=== PATIENT | female | born 1950 | race Caucasian/White ===

== ENCOUNTER 2017-02-28 06:54 | Inpatient (IN) | payer MEDICARE ==
[~2017-02-28] VITALS: Ht 152.4 cm; Wt 81.7 kg
--- NOTE | ~2017-02-28 | OR ---
PATIENT'S NAME: CYNTHIA RIDER [facility] AGE: 66 Y [address] ROOM: [address] [address] LOCATION: [facility] ADMIT DATE: 02/28/2017 OR/Procedure Report DISCHARGE DATE: FAMILY PHYSICIAN: Elder Nieto MD ATTENDING PHYSICIAN: Antoni Denton SURGEON: Antoni Denton MD SOFTWARE CONFIGURATION SPECIALIST: DATE OF PROCEDURE: 02/28/2017 PREOPERATIVE DIAGNOSIS: Cervical spinal stenosis with cord compression at C4- 5 and C5-6. POSTOPERATIVE DIAGNOSIS: Cervical spinal stenosis with cord compression at C4- 5 and C5-6. OPERATION PROPOSED AND PERFORMED: 1. Anterior cervical microdiskectomy at C4-5. 2. Anterior cervical microdiskectomy at C5-6. 3. Anterior cervical fusion at C4-5. 4. Anterior cervical fusion at C5-6. 5. Plating using the Inion absorbable plate. 6. Allograft. 7. Microscope. 8. Fluoroscopy with interpretation. DESCRIPTION OF PROCEDURE: Under general anesthesia, the patient's neck was slightly extended and the neck and upper chest were prepped and draped in the usual fashion. Next, a curvilinear incision was then carried out extending from the anterior border of the sternomastoid muscle to the midline. The platysma was incised along this line. We then went ahead and continued our dissection in the plane between the sternomastoid muscle and the strap muscle working medial to the carotid sheath. This brought us to the prevertebral fascia which we cauterized and incised, got us to the vertebral bodies and disk spaces. Next, 2 spinal needles were placed in adjacent disk spaces and the initial one showed that we were at the C5-6 and C6-7 disk spaces. Next, we then advanced proximally and we were able to then identify the C4-5 disk space, put a spinal needle in the disk space. We got the fluoroscopy again and it confirmed that this was the C4-5 disk space. We went ahead and marked the C4-5 and C5-6 disk spaces; and at the C4-5 disk space, there was very little disk space present. We were able to use 1-mm Kerrison to remove the anterior osteophytes that were blocking the disk space and those we were able to get into the disk space itself, which was quite narrow. We used curettes to curette out disk material. After we had done this for C4-5, we did the same thing for C5-6. We then went ahead and put in the distractor rods, screwed it into the C4, C5, C6 vertebral bodies. Starting at the C4-5 level, PATIENT'S NAME: CYNTHIA RIDER [facility] AGE: 66 Y [address] ROOM: [place] [address] LOCATION: [facility] ADMIT DATE: 02/28/2017 OR/Procedure Report DISCHARGE DATE: FAMILY PHYSICIAN: Elder Nieto MD ATTENDING PHYSICIAN: Antoni Denton we distracted the disk space, brought in the microscope. With the aid of the microscope, we were able to completely remove the rim of the disk material; however, there were very prominent osteophytes projecting, especially from the posterior-inferior part of the C4 vertebral body and compressing the dura and directly those compressing the spinal cord. Using the Kerrison rongeurs, we were able to remove these prominent osteophytes, both from the posterior- inferior as well as posterior-superior portions of the C4 and C5 vertebral bodies respectively. After this was done, we removed the posterior longitudinal ligament, we were able to identify the dura, unable to say confidently that the compression on the dura at this level had been completely gotten rid of. After that was done, we put a piece of Gelfoam soaked in thrombin in the now empty disk space, we put 2 patties in, released the distraction, and then paid our attention to the C5-C6 level. Procedure carried out at this level was the same. There were prominent osteophytes extending from the posterior-inferior as well as the posterior-superior portions of the C5 and C6 vertebral bodies respectively, but was not as severe as what we had at the C4-5 level. After taking out the disk and removing the osteophytes, the dura was completely decompressed. Next, we directed our attention to the C4-5 level while waiting for hemostasis to occur at the C5-6 level using Gelfoam soaked in thrombin, and with the distraction, we then used the allograft sizer to get the appropriate size bone and we used the 6 mm in height bone and tapped it into the empty disk space. After this was done, the distraction was released. We then distracted the C5-C6 level and carried out a similar process and this height of the bone was also 6 mm. After this had been done, the distraction rods were removed. We filled out these holes left behind with small pieces of bone wax. Next, we got the Inion Sizer to get the appropriate length plate that we needed. After we had done this, we then removed the soft tissue from the anterior-inferior, anterior-superior, and anterior part of the C4, C6, and C5 vertebral bodies respectively. After that was done, we also removed the prominent anterior osteophytes. Next, the inion plate was then put in sterile warm water which we then were able to make a slight lordosis of the plate left. After making the lordosis, we then put the plate directly anterior to the vertebral bodies going across the now empty disk spaces that have been now occupied with the graft. The plate holding pins were then put in place going through the holes in the hole and fixing it to the vertebral bodies, and after this was done, using the double-barrel guide, starting in the middle holes which were over the C5 vertebral bodies, we drilled and tapped and then put the screws in. We used the 14-mm screws. After this was done, we used a double-barrel to also carry out the same thing in the remaining 4 holes. We were able to remove the plate holding pins in order to drill the hole and tap and put the screws in where the pins were. In tapping and drilling what we did was to drill and tap one, we then left the tap in so as to help maintain things while we were drilling and tapping the other hole in the double-barrel system. After we had put all the screws in, the wound was thoroughly irrigated with bacitracin irrigation. There was not PATIENT'S NAME: CYNTHIA RIDER [facility] AGE: 66 Y [address] ROOM: [place] [address] LOCATION: [facility] ADMIT DATE: 02/28/2017 OR/Procedure Report DISCHARGE DATE: FAMILY PHYSICIAN: Elder Nieto MD ATTENDING PHYSICIAN: Antoni Denton any copious bleeding that we could see. We then went ahead and closed the wound in layers, first the platysma and then the skin. After this was done, we brought the x-ray in and with fluoroscopy, we did a lateral fluoroscopy and that showed that the plate, graft, and screws were in good position. The wound had been thoroughly irrigated with bacitracin irrigation prior to closing. The patient tolerated the procedure well and was taken to the recovery room. MD ABIODUN FINCH/rashard /[id number] d: 02/28/17 2310 t: 03/05/17 1206, OPERATIVE SUMMARY
[~2017-02-28 06:54] MED LIST: ACTOS30 MG PO; ALLEGRA-D 24 H1 EACH PO; AMARYL4 MG PO; ASPIRIN EC81 MG PO; BETAPACE (GENER80 MG PO; CARAFATE1 GM PO; CINNAMON500 MG PO; COLACE100 MG PO; COREG 3.1253.125 MG PO; COZAAR25 MG PO; CULTURELLE1 CAP PO; ESTROVEN MAX400 MCG PO; FEOSOL325 MG PO; FIBERCON1 TAB PO; GLUCOPHAGE500 MG PO; LASIX20 MG PO; NEURONTIN100 MG PO; NORCO 5-325 TA1 EACH PO; NORVASC5 MG PO; PRAVACHOL80 MG PO; PRILOSEC20 MG PO; PROAIR HFA8.5 GM INH; SPIRIVA RESPIMAT4 G1 INH; WELLBUTRIN SR150 MG PO
--- NOTE | 2017-02-28 13:10 | NUR ---
Introduced self to patient, her and twin sister. Explained my role. They live in [place], Didn't anticipate any needs at this time. Wrote my name on her marker board, will continue to follow.
--- NOTE | 2017-02-28 14:59 | NUR ---
1217 FENTANYL INITIATED 25 MEQ FOR PAIN. PATIENT IS MOANING AND GRIMACING. 1220 FENTANYL REPEATED. RESPIRTATIONS EVEN AND UNLABORED. PATIENT IS EASY TO AWAKEN AND ACTS STARTLED WHEN TALKED TO. SHE IS A LITTLE DIFFICULT TO ASSESS BECAUSE SHE KEEPS HER EYES CLOSED EVEN WHEN SHE TALKS TO ME. 1228 REPEATED FENTANYL 50 MCG FOR PAIN. 1235 PATIENT TELLS ME THAT SHE IS NOT IN PAIN BUT ALSO TELLS ME THAT IT HURTS TO MOVE HER ARMS. RESPIRATIONS EVEN AND UNLABORED. 1247 VALIUM 1 MG FOR MUSCLE SPAZMS. 1310 PATIENT CONTINUES TO MOAN AND HAVE FACIAL GRIMACE. VALIUM REPEATED. SHE STILL OPENS EYES AND RESPONDING APPROPRIATLY. 1315 FENTANYL 50 MCG REPEATED FOR C/O PAIN WITH MOVEMENT. 1330 PATIENT IS RESTING COMFORTABLE AT THIS TIME. NO MORE MOANING BUT EYES ARE STILL SCRUNCHED TIGHT. WHEN I ASK HER ABOUT PAIN SHE STATES THAT SHE IS NOT HAVING ANY PAIN. 1345 RESTING COMFORTABLE AT THIS TIME. ASSESSMENT UNCHANGED.
--- NOTE | 2017-02-28 17:55 | NUR ---
Significant Event: Under my care from [id number]. Patient up to NTU at 1420. Patient is alert/oriented x3. Received 1 norco for pain, and is on scheduled flexeril. Patient seems to be comfortable with this. Patient's voice is hoarse and has a sore throat. Afebrile. VSS. Has not voided since being up from surgery. They did have a colon catheter in her during surgery, but then discontinued. Anterior neck incision is covered with air strip. C/D/I. Follow up:
--- NOTE | 2017-03-01 01:25 | NUR ---
Significant Event: Patient A/O x 3. Perrla. Denies N/T. Neck pain and headache this shift, relieved with Percocet. Moves all extremities spontaneoulsy and to command with equal strength. Lungs clear on 2 L. Pacemaker. HTN, SBPs 140s-150s. Sore throat. Clear diet this shift, advance today. Ambulates SBA. Dressing intact to neck. R)upper arm midline running NS at 100 ml/hr. Follow up: Continue to monitor
[2017-03-01] MEDS ORDERED: FLEXERIL10 MG PO (14:28)
[2017-03-01] MEDS ORDERED: PERCOCET 5-3251 EACH PO (14:36)
--- NOTE | 2017-03-01 15:41 | NUR ---
Significant Event:PT IS AAOX3. NO C/O NUMBNESS OR TINGLING. MAEW. AMBULATES WELL. DOES HAVE SORE THROAT. PAIN IN NECK NOTED. CONTROLLED WITH PAIN PILLS. IV REMOVED AND PT DISMISSED Follow up:
== END 2017-03-01 15:25 | disposition disaster alternative care site (69) | DRG 472 ==
LOC: G3N 06:54 → GSDC 06:54 → EDSTATUS 13:00 → GNTU 13:10 → GSDC 13:11 → GNTU 03-01 15:25
PROVIDERS: ADMIT Neurological Surgery
PROC: 0RB30ZZ Excision of Cervical Vertebral Disc, Open Approach (ICD-10-PCS; principal; 2017-02-28)
PROC: 0RG20Z0 (ICD-10-PCS; principal; 2017-02-28)
DX: M48.02 Spinal stenosis, cervical region (principal); G95.20 Unspecified cord compression; R94.39 Abnormal result of other cardiovascular function study
CPT/HCPCS: C1713; C1751; J2250; J2270; J2405; J3010; J3360; J3370; J7030